=== PATIENT | female | born 1935 | race Caucasian/White ===

== ENCOUNTER 2019-08-13 07:33 | Emergency (ER) | payer OTHER ==
[2019-08-13 08:23] LABS: WHITE BLOOD COUNT 17.7 10^3/ul (4.8-10.8)
[2019-08-13 08:23] LABS: ABNORMAL IP MESSAGE 1; HEMATOCRIT 31.4 % (37.0-47.0); HEMOGLOBIN 9.6 g/dl (12.0-16.0); MEAN CORPUSCULAR HEMOGLOBIN 27.8 pg (29.0-33.0); MEAN CORPUSCULAR HGB CONC 30.6 g/dl (32.0-37.0); MEAN PLATELET VOLUME 8.6 fl (7.4-10.4); PLATELET COUNT 233 10^3/UL (140-415); RED BLOOD COUNT 3.45 10^6/ul (4.20-5.40); RED CELL DISTRIBUTION WIDTH 19.8 % (11.5-14.5)
[2019-08-13 08:30] LABS: ADD MAN DIFF? YES; POSITIVE DIFF @See below
[2019-08-13 08:38] LABS: POTASSIUM 5.9 mmol/L (3.5-5.1); SODIUM 137 mmol/L (135-144)
[2019-08-13 08:39] LABS: ANION GAP 9 (5-13); BLOOD UREA NITROGEN 68 mg/dl (7-20); CALCIUM 8.3 mg/dl (8.4-10.2); CARBON DIOXIDE 26 mmol/L (21-31); CHLORIDE 102 mmol/L (97-110); CREATININE 7.24 mg/dl (0.44-1.00); GLUCOSE 88 mg/dl (70-220)
[2019-08-13 08:42] LABS: INR 1.06; PROTIME 13.9 Sec (11.9-14.9); PT RATIO 1.1
[2019-08-13 08:43] LABS: PARTIAL THROMBOPLASTIN TIME 38.7 Sec (23.0-35.0)
[2019-08-13] MEDS ORDERED: CEFTRIAXONE 1 GM INJ IM (09:00)
[2019-08-13] MEDS: CEFTRIAXONE 1 GM/50 ML (PMX) 50 ML IVPB (09:46)
[2019-08-13 10:40] LABS: ANISOCYTOSIS 1+ (0-0); BAND NEUTROPHILS % (M) 6 % (0-4); LYMPHOCYTES # 6.5 10^3/ul (0.8-2.9); LYMPHOCYTES #M 6.5 10^3/ul (0.8-2.9); LYMPHOCYTES % (M) 37 % (15-51); MONOCYTE # 1.2 10^3/ul (0.3-0.9); MONOCYTE #M 1.2 10^3/ul (0.3-0.9); MONOCYTES % (M) 7 % (0-11); POIKILOCYTOSIS 1+ (0-0); REACTIVE LYMPHOCYTES #M 0.8 10^3/ul (0.0-0.0); REACTIVE LYMPHOCYTES% (M) 5 % (0-0); SEG NEUT #M 8.1 10^3/ul (1.7-7.5); SEGMENTED NEUTROPHILS (M) % 45 % (39-77)
[2019-08-13 10:41] LABS: BURR CELLS 2+
== END 2019-08-13 12:45 | disposition home or self-care (01) ==
LOC: E/R 07:33
DX: L03.116 Cellulitis of left lower limb (principal); I10 Essential (primary) hypertension; R40.2142 Coma scale, eyes open, spontaneous, at arrival to emergency department; R40.2252 Coma scale, best verbal response, oriented, at arrival to emergency department; R40.2362 Coma scale, best motor response, obeys commands, at arrival to emergency department; M79.89 Other specified soft tissue disorders; Z85.038 Personal history of other malignant neoplasm of large intestine
CPT/HCPCS: 36415; 70450; 73560; 80048; 85025; 85610; 85730; 96374; 99285-25